=== PATIENT | female | born 1965 | race Caucasian/White ===

== ENCOUNTER → 2016-09-04 08:20 | Outpatient (CLI) | payer BC ==
[2014-09-03 06:12] VITALS: BMI 23.1
[~2016-09-04 08:20] MED LIST: HYDROCODONE-APA1 TAB PO; MEDROL DOSE PACK4 MG; PEPCID20 MG PO; PREMPRO 0.3 MG-1 TAB PO; SOMA350 MG PO
== END ==
LOC: D.MRI 08:20
DX: M25.562 Pain in left knee (principal); R60.0 Localized edema

== ENCOUNTER → 2016-11-14 19:08 | Outpatient (CLI) | payer BC ==
[2014-09-03 06:12] VITALS: BMI 23.1
== END | disposition home or self-care (01) ==
LOC: D.MAMMO 15:30
DX: Z12.31 Encounter for screening mammogram for malignant neoplasm of breast (principal)

== ENCOUNTER → 2016-11-29 17:07 | Outpatient (CLI) | payer BC ==
[2014-09-03 06:12] VITALS: BMI 23.1
== END | disposition home or self-care (01) ==
LOC: D.MAMMO 10:30
DX: R92.8 Other abnormal and inconclusive findings on diagnostic imaging of breast (principal)

== ENCOUNTER → 2018-07-02 19:53 | Outpatient (CLI) | payer BC ==
[2014-09-03 06:12] VITALS: BMI 23.1
[~2018-07-02 19:53] MED LIST changes: +ALEVE220 MG PO; +DILAUDID2 MG PO
== END | disposition home or self-care (01) ==
LOC: D.MAMMO 09:30
DX: Z12.31 Encounter for screening mammogram for malignant neoplasm of breast (principal)

== ENCOUNTER 2018-07-18 05:45 | Day surgery (SDC) | payer BC ==
[2018-07-17 10:23] LABS: HEMATOCRIT 39.7 % (36.0-48.0); HEMOGLOBIN 12.9 g/dL (12-16); MCH 27.7 pg (26.0-34.0); MCHC 32.5 g/dL (31.0-37.0); MCV 85.2 fL (80.0-100.0); MEAN PLATELET VOLUME 9.7 fL (7.4-10.4); RBC 4.66 10x6/uL (4.00-5.40); RDW 13.7 % (11.5-14.5); WBC 7.1 10x3/uL (4.8-10.8)
== END 2018-07-18 09:52 | disposition home or self-care (01) ==
LOC: D.OPS 05:45
PROVIDERS: Anesthesiology
DX: M79.89 Other specified soft tissue disorders (principal); M70.52 Other bursitis of knee, left knee

== ENCOUNTER → 2018-11-28 16:27 | Outpatient (CLI) | payer BC ==
[2018-07-18 06:09] VITALS: BMI 26.6
== END | disposition home or self-care (01) ==
LOC: D.MRI 16:27
PROVIDERS: ATTEND Orthopaedic Surgery
DX: M93.262 Osteochondritis dissecans, left knee (principal)

== ENCOUNTER 2020-05-26 16:30 | Outpatient (CLI) | payer BC ==
[2018-07-18 06:09] VITALS: BMI 26.6
== END 2020-05-26 23:59 | disposition home or self-care (01) ==
LOC: D.MAMMO 16:30
PROVIDERS: ATTEND Family Medicine
DX: Z12.31 Encounter for screening mammogram for malignant neoplasm of breast (principal)